=== PATIENT | female | born 1990 | race African-American/Black ===

== ENCOUNTER 2016-05-03 13:44 | Emergency (ER) | payer OTHER ==
[2016-05-03 13:49] VITALS: BP 131/79; PULSE 89; TEMP 98.3; BMI 29.0
--- NOTE | 2016-05-03 14:26 | PDOC ---
History of Present Illness - History of Present Illness Initial Comments: 05/03/16 14:41 Patient is a 25 year old female (LNMP: 04/15/2016) with significant medical hx of PCOS, reports a ruptured cyst three months ago, who is presenting to the ED with two hours of abdominal cramping. The patient complains of upper, central abdominal cramping that was constant at first and became intermittent while in the ED. The patient states that her cramping has resolved at this time. Today the patient ate a plum at work and her symptoms began shortly afterwards. She also complains of one episode of diarrhea while at work. The patient denies chest pain, shortness of breath, headache and dizziness. Denies fever, chills, nausea, vomit, and constipation. Denies dysuria, frequency , urgency and hematuria. Allergies: None Past surgical history: No abdominal surgeries PMD: Suellen Wilhelm MD <Neda Antonio - Last Filed: 05/03/16 14:41> - General History Source: Patient Exam Limitations: No Limitations <Jeannette Kline - Last Filed: 05/04/16 12:36> - General Chief Complaint: Pain, Acute Stated Complaint: ABD PAIN Time Seen by Provider: 05/03/16 13:58 Past History <Neda Antonio - Last Filed: 05/03/16 14:41> - Past Medical History GI Disorders: Yes (RECTAL BLEEDING, ABD. PAIN) - Reproductive History Polycystic Ovaries: Yes - Immunization History Immunization Up to Date: Yes - Psycho/Social/Smoking Cessation Hx Anxiety: No Suicidal Ideation: No Smoking Status: No Smoking History: Never smoked Have you smoked in the past 12 months: No Number of Cigarettes Smoked Daily: 0 Hx Alcohol Use: No Drug/Substance Use Hx: No Substance Use Type: None <Jeannette Kline - Last Filed: 05/04/16 12:36> - Past Medical History Allergies/Adverse Reactions: Allergies Allergy/AdvReac Type Severity Reaction Status Date / Time No Known Allergies Allergy Verified 05/03/16 13:44 Home Medications: Ambulatory Orders Ranitidine [Zantac -] 150 mg PO DAILY #30 tablet 05/03/16 Review of Systems - Review of Systems Comments:: 05/03/16 14:47 GENERAL/CONSTITUTIONAL: No: fever, chills, weakness, loss of appetite. HEAD, EYES, EARS, NOSE AND THROAT: No: change in vision, ear pain, discharge, sore throat, throat swelling. CARDIOVASCULAR: No: chest pain, lightheadedness, palpitations, syncope RESPIRATORY: No: cough, shortness of breath, wheezing, hemoptysis, stridor. GASTROINTESTINAL: Yes: abdominal cramping, diarrhea. No: nausea, vomiting, rectal bleeding, constipation. GENITOURINARY: No: dysuria, hematuria, frequency, urgency, flank pain. MUSCULOSKELETAL: No: back pain, neck pain, joint pain, muscle swelling or pain SKIN AND BREASTS: No: lesions, pallor, rash or easy bruising. NEUROLOGIC: No: headache, vertigo, paresthesias, weakness ENDOCRINE: No: unexplained weight gain or loss HEMATOLOGIC/LYMPHATIC: No: anemia, easy bleeding, swelling nodes <Neda Antonio - Last Filed: 05/03/16 14:41> *Physical Exam - Vital Signs Last Vital Signs Temp Pulse Resp BP Pulse Ox 98.3 F 89 16 131/79 100 05/03/16 13:44 05/03/16 13:44 05/03/16 13:44 05/03/16 13:44 05/03/16 13:44 - Physical Exam Comments: 05/03/16 14:48 GENERAL: The patient is in no acute distress. HEAD: Normal with no signs of trauma. EYES: PERRLA, EOMI, sclera anicteric, conjunctiva clear. ENT: Ears normal, nares patent, oropharynx clear without exudates. Moist mucous membranes. NECK: Normal range of motion, supple without lymphadenopathy, JVD, or masses. LUNGS: Breath sounds equal, clear to auscultation bilaterally. No wheezes, and no crackles. HEART:Regular rate and rhythm, normal S1 and S2 without murmur, rub or gallop. ABDOMEN: Soft, nontender, normoactive bowel sounds. No guarding, no rebound. EXTREMITIES: Normal range of motion, no edema. No clubbing or cyanosis. No erythema, or tenderness. NEUROLOGICAL: Cranial nerves II through XII grossly intact. Normal speech. No focal neurological deficits. MUSCULOSKELETAL: Back non-tender to palpation, no CVA tenderness SKIN: Warm, Dry, normal turgor, no rashes or lesions noted. <Neda Antoino - Last Filed: 05/03/16 14:41> - Vital Signs Last Vital Signs Temp Pulse Resp BP Pulse Ox 98.3 F 89 16 131/79 100 05/03/16 13:44 05/03/16 13:44 05/03/16 13:44 05/03/16 13:44 05/03/16 13:44 <Jeannette Kline - Last Filed: 05/04/16 12:36> ED Treatment Course - LABORATORY CBC & Chemistry Diagram: 05/03/16 14:38 05/03/16 14:38 <Jeannette Kline - Last Filed: 05/04/16 12:36> Medical Decision Making - Medical Decision Making 05/03/16 14:26 A portion of this note was documented by scribe services under my direction. I have reviewed the details of the note, within reason, and agree with the documentation with the following case summary and management plan written by me. Nursing documentation reviewed and incorporated into medical decision making 25 yo F presenting to the ER with a complaint of severe abdominal pain Epigastric pain which is described as crampy pain No fevers or chills (+) Nausea No vomiting Pt is unsure if she had diarrhea today No change in diet No recent travel No ill contacts No abd distention LMP 2 weeks ago Symptoms lasted until patient came to the ER She has not had symptoms like this in the past No tenderness to palpation Neg Rain's sign 05/03/16 16:07 Laboratory Tests 05/03/16 05/03/16 14:38 14:38 WBC 6.0 Hgb 14.1 Hct 43.5 Plt Count 224 Neutrophils % 71.3 Lymphocytes % 21.0 BUN 18 Creatinine 0.8 Total Amylase 60 Lipase 25 Upon re assessment No abdominal tenderness to palpation No involuntary guarding or rebound No more nausea or vomiting Clinical Impression: abdominal pain <Jeannette Kline - Last Filed: 05/04/16 12:36> *DC/Admit/Observation/Transfer - Attestations Scribe Attestion: 05/03/16 14:49 Documentation prepared by Neda Antonio, acting as medical receptionist biller for Jeannette Kline MD. <Neda Antonio - Last Filed: 05/03/16 14:41> - Discharge Dispostion Admit: No <Jeannette Kline - Last Filed: 05/04/16 12:36> Diagnosis at time of Disposition: Epigastric abdominal pain - Discharge Dispostion Disposition: HOME Condition at time of disposition: Improved - Prescriptions Prescriptions: Ranitidine [Zantac -] 150 mg PO DAILY #30 tablet - Referrals Referrals: Suellen Wilhelm [Primary Care Provider] - - Patient Instructions Printed Discharge Instructions: DI for Abdominal Pain-Adult Additional Instructions: Return to the emergency department immediately with ANY new, persistent or worsening symptoms. Continue any medications as previously prescribed by your physician. You should follow up with your primary doctor as soon as possible regarding today's emergency department visit. . Please make sure your doctor reviews the results of your emergency evaluation. Thank you for coming to the [facility] today for your care. It was a pleasure to see you today. Please note that your evaluation is INCOMPLETE until you follow-up with your doctor. - Post Discharge Activity Work/School Note: Back to Work
[2016-05-03] MEDS ORDERED: FAMOTIDINE 20 MG/50 ML IVPB 50 ML IVPB ONE ×2 (14:27→14:39)
[2016-05-03 14:58] LABS: BASOPHIL 0.3 % (0-2.0); MCH 28.4 pg (25.7-33.7); MCHC 32.4 g/dl (32.0-36.0); MEAN CELL VOLUME 87.7 fl (80-96); MEAN PLT VOLUME 8.4 fl (7.5-11.1); NEUTROPHILS 71.3 % (42.8-82.8); PLATELET COUNT 224 K/MM3 (134-434); RDW 12.4 % (11.6-15.6)
[2016-05-03 15:10] LABS: ALBUMIN 4.1 g/dl (3.5-5.0); ALK PHOS 49 U/L (32-92); AMYLASE 60 U/L (25-125); ANION GAP 5 (8-16); BILIRUBIN,TOTAL 0.3 mg/dl (0.2-1.0); CALCIUM 9.1 mg/dl (8.4-10.2); CO2 25 mmol/L (22-28); CREATININE 0.8 mg/dl (0.6-1.3); GLUCOSE,RANDOM 83 mg/dl (74-106); SGOT/AST 25 U/L (10-42); SGPT/ALT 20 U/L (10-40); TOT PROT 7.1 g/dl (6.4-8.3)
== END 2016-05-03 16:33 | disposition home or self-care (01) ==
LOC: FER 13:44
PROC: 3E033GC Introduction of Other Therapeutic Substance into Peripheral Vein, Percutaneous Approach (ICD-10-PCS; principal; 2016-05-03)
DX: R10.13 Epigastric pain (principal)
CPT/HCPCS: 36415; 80053; 82150; 83690; 85025; 99282-25

== ENCOUNTER 2016-08-15 16:29 | Emergency (ER) | payer OTHER ==
--- NOTE | 2016-08-15 16:33 | PDOC ---
Attending Attestation - Resident Resident Name: Antony Rothman - ED Attending Attestation I have performed the following: I have examined & evaluated the patient, The case was reviewed & discussed with the resident, I agree w/resident's findings & plan, Exceptions are as noted - HPI HPI: 08/15/16 16:32 The patient is a 25 year old female with a significant past medical history of PCOS, ruptured ovarian cysts and dysmenorhea who presents to the ED complaining of lower abdominal pain for 1 day. The pain began with onset of her menses and is similar to her previous episodes of dysmenorhea. It is lower pelvic and midline. She has no lateral pain. It is a dull, burning pain. It was gradual in onset. No nausea, vomiting. 08/15/16 16:38 08/15/16 17:27 08/15/16 17:28 - Physicial Exam PE: 08/15/16 16:33 She is well appearing and in no acute distress Vitals noted Abdomen soft and non-tender 08/15/16 16:50 - Medical Decision Making 08/15/16 16:50 She is well appearing and in no acute distress Will administer IM toradol 08/15/16 17:27 Symptoms much improved after medications Will administer 1 percocet for further analgesia Clinical impression: Dysmenorrhea I discussed the physical exam findings, ancillary test results and final diagnoses with the patient. I answered all of the patient's questions. The patient was satisfied with the care received and felt comfortable with the discharge plan and treatment plan. The patient will call their primary care physician within 24 hours to arrange follow-up and will return to the Emergency Department with any new, persistent or worsening sympto 08/15/16 17:28
[2016-08-15] MEDS ORDERED: KETOROLAC TROMETHAMINE 60 MG/2 ML VIAL IM ONE (16:51)
[2016-08-15 16:53] VITALS: BP 128/73; PULSE 82; TEMP 97.8; BMI 29.7
[2016-08-15] MEDS ORDERED: KETOROLAC TROMETHAMINE 60 MG/2 ML VIAL ONE (16:57)
[2016-08-15 17:19] LABS: PH,URINE 8.5 (4.5-8); URINE APPEARANCE Clear; URINE BILIRUBIN Negative (NEGATIVE); URINE GLUCOSE (UA) Negative (NEGATIVE); URINE KETONE Negative (NEGATIVE); URINE LEUK ESTERASE Negative (NEGATIVE); URINE NITRITE Negative (NEGATIVE); URINE UROBILINOGEN 1.0 E.U/dl (0.2-1.0)
[2016-08-15 17:22] LABS: URINE BLOOD 2+ (NEGATIVE); URINE COLOR YELLOW; URINE PROTEIN 2+ (NEGATIVE)
[2016-08-15] MEDS ORDERED: OXYCODONE/APAP 5/325MG COMBO TABLET PO ONE (17:29)
[2016-08-15] MEDS ORDERED: OXYCODONE/APAP 5/325MG COMBO TABLET ONE (17:32)
--- NOTE | 2016-08-15 17:34 | PDOC ---
History of Present Illness - General Chief Complaint: Pain, Acute Stated Complaint: LOWER ABDOMINAL PAIN Time Seen by Provider: 08/15/16 16:32 - History of Present Illness Initial Comments: 25 y/o F w/PMH of PCOS presents with abdominal pain since 11 am this monring. Pain started suddenly and is located in lower abdomen and radiates to rest of her abdomen and groin. Pain is described as crampy with baseline pain of 6/10 with episodic 10/10 pain. Today is also the first day of her menstrual cycle and she has this type of pain before with the beginning of her menstrual cycle. She took 400 mg ibuprofen with no relief. She states her menses today is heavier than usual and her menstrual cycle is regular at 27-28 days. She had some nausea 30 min before coming to the ER from pain but no longer has nausea. She denies any fevers, chills, CP, SOB, light-headedness, dizziness, leg pain, leg swelling. She denies any trauma to her abdomen or recent MVA. Past History - Past Medical History Allergies/Adverse Reactions: Allergies Allergy/AdvReac Type Severity Reaction Status Date / Time No Known Allergies Allergy Verified 08/15/16 16:31 Home Medications: Ambulatory Orders Naproxen [Naprosyn -] 500 mg PO BID #20 tablet 08/15/16 Naproxen [Naprosyn] 500 mg PO BID PRN #20 tablet 08/15/16 GI Disorders: Yes (RECTAL BLEEDING, ABD. PAIN) Other medical history: RUPTURED OVARIAN CYST RIGHT SIDE - Reproductive History Is Patient Now?: No (#): 0 Polycystic Ovaries: Yes - Immunization History Immunization Up to Date: Yes - Psycho/Social/Smoking Cessation Hx Anxiety: No Suicidal Ideation: No Smoking Status: No Smoking History: Former smoker Have you smoked in the past 12 months: No Number of Cigarettes Smoked Daily: 0 Information on smoking cessation initiated: No Hx Alcohol Use: Yes (SOCIAL) Drug/Substance Use Hx: No Substance Use Type: Alcohol Review of Systems - Review of Systems Able to Perform ROS?: Yes Comments:: CONSTITUTIONAL: Absent: fever, no chills EYES: Absent: visual changes 0ENT: Absent: ear pain, no sore throat CARDIOVASCULAR: Absent: chest pain, no palpitations RESPIRATORY: Absent: cough, no SOB GI: +abdominal pain, +nausea Absent: no vomiting, no constipation, no diarrhea GENITOURINARY: +increased bleeding during menstruation. Absent: dysuria, no frequency, no hematuria MUSCULOSKELETAL: Absent: back pain, no arthralgia, no myalgia SKIN: Absent: rash NEURO: Absent: headache *Physical Exam - Vital Signs Last Vital Signs Temp Pulse Resp BP Pulse Ox 97.8 F 82 16 128/73 100 08/15/16 16:30 08/15/16 16:30 08/15/16 16:30 08/15/16 16:30 08/15/16 16:30 - Physical Exam Comments: GENERAL: Well-appearing, well-nourished. No apparent distress. HEENT: Normocephalic, atraumatic. EOM intact. CARDIOVASCULAR: Normal S1, S2. Regular rate and rhythm. PULMONARY: Clear to auscultation bilaterally. ABDOMEN: +lower abdominal tenderness Soft, non-distended EXTREMITIES: Normal ROM in all four extremities. No gross deformities. SKIN: Warm, dry. No rash NEUROLOGICAL: No focal neurological deficits. ED Treatment Course - ADDITIONAL ORDERS Additional order review: Laboratory Results 08/15/16 16:54 Urine Color Yellow Urine Appearance Clear Urine pH 8.5 H Ur Specific [place] 1.015 Urine Protein 2+ H Urine Glucose (UA) Negative Urine Ketones Negative Urine Blood 2+ H Urine Nitrite Negative Urine Bilirubin Negative Urine Urobilinogen 1.0 e.u/dl Ur Leukocyte Esterase Negative Urine HCG, Qual Negative - Medications Given in the ED: ED Medications Discontinued Medications Generic Name Dose Route Start Last Admin Trade Name Freq PRN Reason Stop Dose Admin Ketorolac Tromethamine 60 mg 08/15/16 16:51 08/15/16 17:01 Toradol Injection - IM 08/15/16 16:52 60 mg ONCE ONE Administration Medical Decision Making - Medical Decision Making 25 y/o F w/PMH of PCOS presents with abdominal pain since 11 am this monring. Pain started suddenly and is located in lower abdomen and radiates to rest of her abdomen and groin. Pain is described as crampy with baseline pain of 6/10 with episodic 10/10 pain. Today is also the first day of her menstrual cycle and she has this type of pain before with the beginning of her menstrual cycle. She took 400 mg ibuprofen with no relief. She states her menses today is heavier than usual and her menstrual cycle is regular at 27-28 days. She had some nausea 30 min before coming to the ER from pain but no longer has nausea. She denies any fevers, chills, CP, SOB, light-headedness, dizziness, leg pain, leg swelling. She denies any trauma to her abdomen or recent MVA. 08/15/16 17:33 Toradol for pain given with some relief. Pain is at 5/10 with some episodes of 8 /10. 08/15/16 17:47 Patient given percocet 5/325. Pt's UA reveals 2+ protein and 8.5 pH Pt's symptoms improving. Pt instructed to follow up with PCP for abnormal UA. Pt also instructed to f/u with [facility]. Pt to be discharged to home. *DC/Admit/Observation/Transfer Diagnosis at time of Disposition: Dysmenorrhea - Discharge Dispostion Disposition: HOME Condition at time of disposition: Improved - Prescriptions Prescriptions: Naproxen [Naprosyn] 500 mg PO BID PRN #20 tablet PRN Reason: Pain Naproxen [Naprosyn -] 500 mg PO BID #20 tablet - Referrals Referrals: Suellen Wilhelm [Staff Physician] - - Patient Instructions Printed Discharge Instructions: DI for Dysmenorrhea Additional Instructions: You will need to follow up with an projection technician physician. You also need to follow up with your primary care physician. You will need to repeat your urine test with your primary care physician as it shows protein 2+ and a high urine pH of 8.5 A pain medication, naproxen, has been sent to your pharmacy. Take it as directed for your abdominal pain. If your pain worsens please come back to the emergency room. - Post Discharge Activity Work/School Note: Back to Work
[2016-08-15 18:09] LABS: URINE RBC 20-40 /hpf (0-3)
[2016-08-15 18:10] LABS: URINE MUCUS 1+
== END 2016-08-15 17:50 | disposition home or self-care (01) ==
LOC: SUPCPDRO 16:29 → FER 16:29
PROC: 3E0233Z Introduction of Anti-inflammatory into Muscle, Percutaneous Approach (ICD-10-PCS; principal; 2016-08-15)
DX: N94.6 Dysmenorrhea, unspecified (principal); Z87.891 Personal history of nicotine dependence; N83.201 Unspecified ovarian cyst, right side
CPT/HCPCS: 81003; 81015; 84703; 99282-25

== ENCOUNTER 2018-09-10 14:58 | Emergency (ER) | payer OTHER ==
[2018-09-10 15:16] VITALS: BP 115/75; PULSE 66; TEMP 97.8
[2018-09-10 15:30] LABS: HCG,QUALITATIVE URINE Positive
--- NOTE | 2018-09-10 16:41 | PDOC ---
Documentation entered by Erick Greer SCRIBE, acting as scribe for Alok Keane MD. Alok Keane MD: This documentation has been prepared by the avaniibPercy hightower Daniel, SCRIBE, under my direction and personally reviewed by me in its entirety. I confirm that the documentation accurately reflects all work, treatment, procedures, and medical decision making performed by me. History of Present Illness - General Chief Complaint: Pain Stated Complaint: ADB CRAMPS, Time Seen by Provider: 09/10/18 15:00 History Source: Patient Exam Limitations: No Limitations - History of Present Illness Initial Comments: 09/10/18 15:35 The patient is a 27 year old female with no past medical history here today for evaluation of abdominal pain. The patient reports that she is 6 weeks and used a home urine test 2 weeks ago. She reports seeing her OB for 2 ultrasounds the first on 08/25/18 and the second on 09/02/18. Patient states that no heartbeat was seen on the first ultrasound but one was seen on the second. She reports that she began to feel lower abdominal pressure today prior to exercise and began to develop lower right quadrant pain that radiates to her back. She denies vaginal bleeding, discharge, or pain. She states that her last bowel movement was yesterday and was hard. She reports getting constipated intermittently. She also notes headache. Patient denies lightheadedness. Denies fever, chills. Denies chest pain, shortness of breath. Denies nausea, vomiting, diarrhea, abdominal pain. Denies urinary symptoms. Allergies: NKA Social history: Denies tobacco, illicit drug, and alcohol use. OB: Princess Romero Past History - Past Medical History Allergies/Adverse Reactions: Allergies Allergy/AdvReac Type Severity Reaction Status Date / Time No Known Allergies Allergy Verified 09/10/18 14:59 Home Medications: Ambulatory Orders Pnv No.95/Ferrous Fum/Folic AC [ Vitamin Tablet] 1 each PO DAILY COPD: No DVT: No GI Disorders: Yes (RECTAL BLEEDING, ABD. PAIN) - Reproductive History (#): 0 Polycystic Ovaries: Yes - Immunization History Immunization Up to Date: Yes - Suicide/Smoking/Psychosocial Hx Smoking Status: No Smoking History: Former smoker Have you smoked in the past 12 months: No Number of Cigarettes Smoked Daily: 0 Hx Alcohol Use: Yes (SOCIAL) Drug/Substance Use Hx: No Substance Use Type: Alcohol Review of Systems - Review of Systems Able to Perform ROS?: Yes Comments:: 09/10/18 15:35 CONSTITUTIONAL: Absent: Fever, Chills, Diaphoresis, Generalized Weakness, Malaise, Loss of Appetite HEENT: Absent: Rhinorrhea, Nasal Congestion, Throat Pain, Throat Swelling, Difficulty Swallowing, Mouth Swelling, Ear Pain, Eye Pain, Visual Changes CARDIOVASCULAR: Absent: Chest Pain, Syncope, Palpitations, Irregular Heart Rate, Lightheadedness , Peripheral Edema RESPIRATORY: Absent: Cough, Shortness of Breath, SOB with Exertion, Orthopnea, Wheezing, Stridor, Hemoptysis GASTROINTESTINAL: +lower right quadrant pain Absent: Abdominal Distension, Nausea, Vomiting, Diarrhea, Constipation, Melena, Hematochezia GENITOURINARY: Absent: Dysuria, Frequency, Urgency, Hesitancy, Flank Pain, Genital Pain MUSCULOSKELETAL: +back pain Absent: Myalgia, Arthralgia, Joint Swelling, Neck Pain SKIN: Absent: Rash, Itching, Pallor HEMEATOLOGIC/IMMUNOLOGIC: Absent: Easy Bleeding, Easy Bruising, Lymphadenopathy, Frequent infections ENDOCRINE: Absent: Unexplained Weight Gain, Unexplained Weight Loss, Heat Intolerance, Cold Intolerance NEUROLOGIC: Absent: Headache, Focal Weakness, Paresthesias, Vertigo, Lightheadedness, Unsteady Gait, Seizure, Mental Status Changes, Incontinence PSYCHIATRIC: Absent: Anxiety, Depression *Physical Exam - Vital Signs Last Vital Signs Temp Pulse Resp BP Pulse Ox 97.8 F 66 20 115/75 100 09/10/18 14:59 09/10/18 14:59 09/10/18 14:59 09/10/18 14:59 09/10/18 14:59 - Physical Exam Comments: 09/10/18 15:35 GENERAL: The patient is awake, alert, and fully oriented, in no acute distress. HEAD: Normal with no signs of trauma. EYES: Pupils equal, round and reactive to light, extraocular movements intact, sclera anicteric, conjunctiva clear. ENT: Ears normal, nares patent, oropharynx clear without exudates. Moist mucous membranes. NECK: Normal range of motion, supple without lymphadenopathy, JVD, or masses. LUNGS: Breath sounds equal, clear to auscultation bilaterally. No wheezes, and no crackles. HEART: Regular rate and rhythm, normal S1 and S2 without murmur, rub or gallop. ABDOMEN: Soft, nontender, normoactive bowel sounds. No guarding, no rebound. No masses. EXTREMITIES: Normal range of motion, no edema. No clubbing or cyanosis. No cords , erythema, or tenderness. NEUROLOGICAL: Cranial nerves II through XII grossly intact. Normal speech, normal gait. PSYCH: Normal mood, normal affect. SKIN: Warm, Dry, normal turgor, no rashes or lesions noted. ED Treatment Course - ADDITIONAL ORDERS Additional order review: Laboratory Results 09/10/18 15:20 Urine Color Yellow Urine Appearance Clear Urine pH 7.0 Urine Protein Negative Urine Glucose (UA) Negative Urine Ketones Negative Urine Blood Negative Urine Nitrite Negative Urine Bilirubin Negative Urine Urobilinogen 0.2 Ur Leukocyte Esterase Negative Urine HCG, Qual Positive - RADIOLOGY Radiology Studies Ordered: Category Date Time Status <14WKS US [US] Stat Ultrasound 09/10/18 15:12 Completed Medical Decision Making - Medical Decision Making 09/10/18 16:34 27-year-old female, , presents complaining of right lower quadrant pain. She has been since her last menstrual period in July. She had 2 ultrasounds with the [facility] doctor, the most recent showing intrauterine with positive heart. Well until this morning when she developed some right lower quadrant pain. She had mild suprapubic pain when she got up in the morning and then after doing some jumping jacks she developed sharp right lower quadrant pain just at the level of the groin. She stopped the exercise and then came to the emergency department for further evaluation. She has no abnormal urinary symptoms. She has no vaginal bleeding. She has no fever, chills, nausea, or vomiting. On examination, there is no tenderness noted. There is no vaginal discharge or bleeding. While in the emergency department, the pain subsided. Initial impression was possible complication of , not suggestive of appendicitis or urinary tract infection. Urinalysis was performed and is negative for infection. Urine testing is positive. Pelvic ultrasound was performed demonstrating an intrauterine with a positive heart. Measurements estimate the gestational age to be 7 weeks and 2 days. There is a small amount of free fluid. Simple corpus luteum cyst in the left ovary was noted. Impression: Pelvic pain, , no signs of complication. Normal IUP on ultrasound. No evidence of urinary tract infection. Resolution of pain with repeat examination benign not consistent with appendicitis. Patient is stable for discharge. She will follow up with her [facility] doctor. *DC/Admit/Observation/Transfer Diagnosis at time of Disposition: Right lower quadrant pain Qualifiers: Weeks of gestation: less than 8 weeks Qualified Code(s): Z3A.01 - Less than 8 weeks gestation of - Discharge Dispostion Disposition: HOME Condition at time of disposition: Improved Decision to Admit order: No - Referrals - Patient Instructions Additional Instructions: Today you were evaluated for right-sided abdominal pain. The urine testing showed no infection. The pelvic ultrasound shows a healthy at 7 weeks and 2 days of gestation. As the pain has resolved in the emergency department, there is no sign of any serious problem. Follow-up with your [facility] doctor this week. Return to the emergency department for any severe or progressive symptoms such as fever, vaginal bleeding, or increasing pain. - Post Discharge Activity
== END 2018-09-10 17:04 | disposition home or self-care (01) ==
LOC: FER 14:58
DX: O26.891 Other specified pregnancy related conditions, first trimester (principal); Z3A.01 Less than 8 weeks gestation of pregnancy; R10.31 Right lower quadrant pain
CPT/HCPCS: 76801-TC; 81003; 84703; 99281-25

== ENCOUNTER 2019-03-24 22:58 | Emergency (ER) | payer OTHER ==
[2019-03-24] MEDS ORDERED: ACETAMINOPHEN 500 MG TABLET (FP) ONE (23:11)
[2019-03-24 23:13] VITALS: BP 120/72; PULSE 104; TEMP 98.1; BMI 34.4
--- NOTE | 2019-03-24 23:14 | PDOC ---
History of Present Illness - General Chief Complaint: Cold Symptoms Stated Complaint: COLD SYMPTOMS Time Seen by Provider: 03/24/19 23:02 History Source: Patient Exam Limitations: No Limitations - History of Present Illness Initial Comments: 03/24/19 23:11 This is a 28-year-old female who is 35 weeks . Patient comes in complaining of nasal congestion difficulty sleeping cough and headache x2 days. Patient has not taken anything for her symptoms as she is and was not sure what she could take. Patient otherwise denies any sore throat. Fevers or nausea vomiting or diarrhea. Allergies: as per nursing notes Past Medical History: none Social history: Lives with family. No smoking. No alcohol. No illicit drugs. Surgical history: None General: No fevers or chills, no weakness, no weight loss HEENT: No change in vision. No sore throat,. No ear pain CardioVascular: no chest discomfort. No shortness of breath Respiratory:No cough, or wheezing. Gastrointestinal: no nausea, vomiting, diarrhea or constipation, No rectal bleeding Genitourinary: No dysuria, hematuria, or frequency Musculoskeletal: No joint or muscle pain or swelling Neurologic: No headache, vertigo, dizziness or loss of consciousness Psychiatric: nor depression Skin: No rashes or easy bruising Endocrine: no increased thirst or abnormal weight change Allergic: no skin or latex allergy All other systems reviewed and normal Exam: General: Well-nourished well-developed individual, no acute distress HEENT: Throat: Normal, tonsils normal, + erythema no exudate Neck: Supple, no meningeal signs, no lymphadenopathy Eyes::Pupils equal reactive and round, extraocular motion intact Chest: Nontender to palpation Cardiac: S1-S2 normal, regular rate and rhythm, no murmurs rubs or gallops Respiratory: Lungs clear to auscultation bilateral Abdomen: Soft, nondistended, normal bowel sounds, there is no tenderness on palpation diffusely, abdomen gravid uterus is palpable below the sternal xiphoid Extremities: Warm, dry, no cyanosis, clubbing, or edema Skin: No rashes Neuro: Alert and oriented x3, CN II - XII intact, nonfocal exam with normal strength, normal sensation, normal reflexes, normal gait, Psych: Normal mood and affect Assessment and plan: This is a 28-year-old female who comes in with viral upper respiratory tract symptoms and 35 weeks . Patient given Tylenol for her symptoms and told to follow-up with her OB. Past History - Past Medical History Allergies/Adverse Reactions: Allergies Allergy/AdvReac Type Severity Reaction Status Date / Time No Known Allergies Allergy Verified 09/10/18 14:59 Home Medications: Ambulatory Orders Pnv No.95/Ferrous Fum/Folic AC [ Vitamin Tablet] 1 each PO DAILY COPD: No DVT: No GI Disorders: Yes (RECTAL BLEEDING, ABD. PAIN) - Reproductive History (#): 0 Polycystic Ovaries: Yes - Immunization History Immunization Up to Date: Yes - Psycho Social/Smoking Cessation Hx Smoking Status: No Smoking History: Former smoker Have you smoked in the past 12 months: No Number of Cigarettes Smoked Daily: 0 Hx Alcohol Use: Yes (SOCIAL) Drug/Substance Use Hx: No Substance Use Type: Alcohol Discharge - Discharge Information Problems reviewed: Yes Clinical Impression/Diagnosis: Viral upper respiratory illness Condition: Stable Disposition: HOME - Admission No - Follow up/Referral Referrals: Erick Trevino MD [Primary Care Provider] - - Patient Discharge Instructions Additional Instructions: Take Tylenol 2 extra strength tablets as often as every 4-6 hours as needed for fevers or body aches or headache. Use humidifier in your room at night to help you breathe better. Return to the emergency department immediately with ANY new, persistent or worsening symptoms. Continue any medications as previously prescribed by your physician. You should follow up with your primary doctor as soon as possible regarding today's emergency department visit. . Please make sure your doctor reviews the results of your emergency evaluation. Thank you for coming to the Emergency Department today for your care. It was a pleasure to see you today. Please note that your evaluation is INCOMPLETE until you follow-up with your doctor. - Post Discharge Activity
[2019-03-24] MEDS ORDERED: ACETAMINOPHEN 500 MG TABLET (FP) PO ONE (23:18)
== END 2019-03-24 23:20 | disposition home or self-care (01) ==
LOC: FER 22:58
DX: O26.893 Other specified pregnancy related conditions, third trimester (principal); Z3A.35 35 weeks gestation of pregnancy; Z87.891 Personal history of nicotine dependence; K62.5 Hemorrhage of anus and rectum; R10.9 Unspecified abdominal pain
CPT/HCPCS: 99282-25

== ENCOUNTER 2019-05-25 12:08 | Emergency (ER) | payer OTHER ==
--- NOTE | 2019-05-25 12:30 | PDOC ---
History of Present Illness - General Chief Complaint: Cold Symptoms Stated Complaint: COLD SYMPTOMS Time Seen by Provider: 05/25/19 12:20 - History of Present Illness Initial Comments: HPI: 28yo F with no reported PMH recently post- with [id number] at home presenting with sore throat and cough x 2 days. Patient is her child. Endorses some congestiona and runny nose with post-nasal drip. Has not tried anything [id number]. Denies sick contacts or recent travel. No fevers or chills. ROS: Constitutional: no fever, no chills HEENT: +throat pain, no dysphagia Cardiovascular: no chest pain, no palpitations Respiratory: +cough, no shortness of breath Gastrointestinal: no abdominal pain, no nausea Genitourinary: no dysuria, no hematuria Musculoskeletal: no myalgia, no arthralgia Skin: no rash, no itching Neurologic: no headache, no weakness Psych: no agitation, no anxiety PE: General: Awake, alert, and fully oriented, in no acute distress Head: No signs of trauma Eyes: EOMI, sclera anicteric ENT: Moist mucus membranes, uvula midline, no oral masses/lesion, oropharynx is mildly erythematous, tonsils are not enlarged Neck: Normal ROM, supple Lungs: Lungs clear, Normal breath sounds Cardio: Regular rhythm, S1 and S2 present Abdomen: Soft, nontender. No guarding, no rebound, no masses Extremities: Normal range of motion, Distal pulses present SKIN: Warm, Dry, normal turgor Neurologic: Cranial nerves II through XII grossly intact. Normal speech ED Course/MDM: DDX including but not limited to viral syndrome, strep pharyngitis, PNA, bronchitis As patient has a at home, decision made to test for strep Strep test negative Tylenol/motrin for comfort No restrictions Return precautions Stable for discharge Past History - Past Medical History Allergies/Adverse Reactions: Allergies Allergy/AdvReac Type Severity Reaction Status Date / Time No Known Allergies Allergy Verified 05/25/19 12:09 Home Medications: Ambulatory Orders NK [No Known Home Medication] 05/25/19 COPD: No DVT: No GI Disorders: Yes (RECTAL BLEEDING, ABD. PAIN) - Reproductive History (#): 0 Polycystic Ovaries: Yes - Immunization History Immunization Up to Date: Yes - Psycho Social/Smoking Cessation Hx Smoking Status: No Smoking History: Former smoker Have you smoked in the past 12 months: No Number of Cigarettes Smoked Daily: 0 Hx Alcohol Use: Yes (SOCIAL) Drug/Substance Use Hx: No Substance Use Type: Alcohol Discharge - Discharge Information Problems reviewed: Yes Clinical Impression/Diagnosis: Sore throat Condition: Stable Disposition: HOME - Follow up/Referral - Patient Discharge Instructions Patient Printed Discharge Instructions: DI for Viral Pharyngitis Additional Instructions: You were seen in the emergency department for sore throat and cough. We tested for strep throat which was negative. Your presentation is consistent with a viral syndrome which is best treated with supportive care. Follow-up with your primary care provider within 72 hours to discuss this ED visit and to further evaluate your symptoms. Call today or tomorrow morning and make an appointment. Your workup is not complete until you do so. You can take [id number] tylenol or motrin for pain. Follow the instructions on the medication bottle. Make sure you do not take too much medicine. The maximum daily dose for tylenol is 4000mg/day. The maximum daily dose for motrin is 3200mg/day. Immediate medical attention is required if: you pass out, have any chest pain, shortness of breath, severe headaches, changes in vision, focal numbness or weakness, any severe abdominal pain, any black tarry stool, or any new or concerning symptoms. If you think you are having an emergency, call for emergency medical services or present to the emergency department right away. - Post Discharge Activity
[2019-05-25 12:34] VITALS: BP 117/70; PULSE 72; TEMP 98.1; BMI 34.1
--- NOTE | 2019-05-25 12:43 | PDOC ---
Attending Attestation - Resident Resident Name: Kayla Johnson - ED Attending Attestation I have performed the following: I have examined & evaluated the patient, The case was reviewed & discussed with the resident, I agree w/resident's findings & plan, Exceptions are as noted - HPI HPI: 05/25/19 13:49 Cold symptoms for several days. No fever/chills. No chest pain or shortness of breath. Has a baby at home and is concerned about infecting the infant. - Physicial Exam PE: 05/25/19 13:50 Physical exam: Afebrile, vital signs normal Nasal congestion, mild pharyngeal erythema. Lungs clear. Cardiac normal. Abdomen benign. No rash. Adequate hydration - Medical Decision Making 05/25/19 13:51 Assessment: Strep swab negative. Viral URI. No suggestion of flu. still with protective antibodies Plan: Reassure. Symptomatic treatment. Follow-up primary physician. Probation Manager if child exhibits symptoms. Fully ambulatory in no distress at discharge
== END 2019-05-25 12:57 | disposition home or self-care (01) ==
LOC: FER 12:08
DX: J02.9 Acute pharyngitis, unspecified (principal); Z87.891 Personal history of nicotine dependence
CPT/HCPCS: 87070; 87880; 99282-25

== ENCOUNTER 2021-03-19 13:45 | Emergency (ER) | payer OTHER ==
[2021-03-19 14:01] VITALS: BP 131/79; PULSE 83; TEMP 98.1; BMI 31.0
[2021-03-19] MEDS ORDERED: FAMOTIDINE 20 MG TABLET PO ONE (14:21)
[2021-03-19] MEDS ORDERED: FAMOTIDINE 20 MG TABLET ONE (14:33)
[2021-03-19 14:58] LABS: ALBUMIN 3.8 g/dl (3.4-5.0); BILIRUBIN,TOTAL 0.5 mg/dl (0.2-1); CALCIUM 8.9 mg/dl (8.5-10); CREATININE 0.7 mg/dl (0.55-1.3); TOT PROT 6.4 g/dl (6.4-8.2)
[2021-03-19 15:11] LABS: BASO % 0.4 % (0-2.0); EOS % 1.3 % (0-4.5); LYMPH % 23.2 % (8-40); MCH 30.9 pg (25.7-33.7); MCHC 34.1 g/dl (32.0-36.0); MEAN CELL VOLUME 90.5 fl (80-96); MEAN PLT VOLUME 8.5 fl (7.5-11.1); MONO % 6.8 % (3.8-10.2); NEUT % 68.3 % (42.8-82.8); PLATELET COUNT 213 10^3/uL (134-434); RBC 4.53 M/mm3 (3.60-5.2); RDW 13.8 % (11.6-15.6); WHITE BLOOD COUNT 4.3 K/mm3 (4.0-10.0)
[2021-03-19] MEDS ORDERED: MAG HYDROX/AL HYDROX/SIMETH 30 ML UNIT-DOSE CUP PO ONE (15:17)
[2021-03-19] MEDS ORDERED: PANTOPRAZOLE 40 MG TABLET PO ONE (15:17)
[2021-03-19] MEDS ORDERED: PANTOPRAZOLE 40 MG TABLET ONE (15:23)
[2021-03-19] MEDS ORDERED: MAG HYDROX/AL HYDROX/SIMETH 30 ML UNIT-DOSE CUP ONE (15:23)
== END 2021-03-19 16:59 | disposition home or self-care (01) ==
LOC: FER 13:45
DX: R10.13 Epigastric pain (principal)
CPT/HCPCS: 36415; 80053; 84703; 85025; 99283-25

== ENCOUNTER 2023-04-03 23:43 | Emergency (ER) | payer OTHER ==
[2023-04-04 00:02] VITALS: BP 124/84; PULSE 84; RESP 18; TEMP 99.1; BMI 31.1
== END 2023-04-04 02:57 | disposition home or self-care (01) ==
LOC: FER 23:43
DX: M79.651 Pain in right thigh (principal); M25.551 Pain in right hip
CPT/HCPCS: 72170-TC-FY; 73502-TC-RT-FY; 99283-25

== ENCOUNTER 2023-06-03 00:54 | Emergency (ER) | payer OTHER ==
[2023-06-03 01:02] VITALS: BP 124/73; PULSE 128; RESP 18; TEMP 102.9; BMI 31.1
[2023-06-03] MEDS ORDERED: ACETAMINOPHEN 500 MG TABLET (FP) ONE (01:08)
[2023-06-03] MEDS: ACETAMINOPHEN 500 MG TABLET (FP) PO ONE (01:12)
== END 2023-06-03 01:16 | disposition home or self-care (01) ==
LOC: FER 00:54
DX: R50.9 Fever, unspecified (principal); M79.10 Myalgia, unspecified site; B34.9 Viral infection, unspecified; Z20.822 Contact with and (suspected) exposure to COVID-19
CPT/HCPCS: 0241U-QW; 99283-25

== ENCOUNTER 2024-02-04 21:37 | Emergency (ER) | payer OTHER ==
[2024-02-04 21:52] VITALS: BP 120/83; PULSE 89; RESP 16; TEMP 98.2; BMI 33.8
== END 2024-02-04 22:59 | disposition home or self-care (01) ==
LOC: FER 21:37
DX: R05.9 Cough, unspecified (principal); R09.81 Nasal congestion; J06.9 Acute upper respiratory infection, unspecified; Z20.822 Contact with and (suspected) exposure to COVID-19
CPT/HCPCS: 0241U-QW; 99283-25